=== PATIENT | male | born 1955 | race Caucasian/White ===

== ENCOUNTER 2018-03-17 18:49 | Inpatient (IN) | payer OTHER ==
[~2018-03-17] VITALS: Ht 172.7 cm; Wt 53.8 kg
[~2018-03-17 18:49] MED LIST: DIGO0.2570 PO; IPRAAER6 IN; MOME200A INH; RIV15T PO
[2018-03-17] MEDS ORDERED: methylPREDNISolone SOD SUCC 125 MG/2 ML VL ONE (18:54)
[2018-03-17] MEDS ORDERED: ALBUTEROL SULF 2.5 MG/0.5ML(0.5%) NEB SOLN ONE (18:56)
[2018-03-17] MEDS ORDERED: methylPREDNISolone SOD SUCC 125 MG/2 ML VL IV ONE (19:00)
[2018-03-17] MEDS ORDERED: MAGNESIUM SULFATE 1GM/100ML 200 ML IV ONE (19:13)
[2018-03-17 19:15] LABS: Basophils # (auto) 0.1 uL; Basophils % (auto) 0.5 % (0.0-2.0); Eosinophils # (auto) 0.3 uL; Eosinophils % (auto) 1.5 % (0.0-7.0); Hematocrit 45.2 % (41.0-53.0); Hemoglobin 15.3 g/dL (13.5-17.5); Lymphocytes # (auto) 2.5 uL; Mean Corpuscular Hemoglobin 32.2 pg (28.0-32.0); Mean Corpuscular Hgb Conc. 33.9 g/dL (32.0-36.0); Mean Corpuscular Volume 94.8 fL (80.0-100.0); Monocytes # (auto) 1.8 uL; Monocytes % (auto) 8.7 % (0.0-12.0); Neutrophils # (auto) 16.1 uL; Neutrophils % (auto) 77.3 % (37.0-80.0); Platelet Count (auto) 405 10^3/uL (140-450); Red Blood Cells 4.76 10^6/uL (4.5-5.90); Red Cell Distribution Width 13.7 % (11.8-14.3); White Blood Cell 20.8 10^3/uL (4.4-10.8)
[2018-03-17] MEDS: MAGNESIUM SULFATE 1GM/100ML 100 ML IV SCH ×2 (19:15→20:21)
[2018-03-17 19:29] LABS: Albumin 3.7 g/dL (3.4-5.0); Calcium 9.2 mg/dL (8.5-10.1)
[2018-03-17 19:30] LABS: INR 0.99 (0.9-1.15); Partial Thromboplastin Time 34.1 sec (23.78-33.04); Prothrombin Time 10.6 sec (9.27-12.13)
[2018-03-17 19:33] LABS: BUN/Creatinine Ratio 13.6; Bilirubin, Total 0.3 mg/dL (0.2-1.0); Total Protein 7.9 g/dL (6.4-8.2)
[2018-03-17 20:20] VITALS: BP 89/57
[2018-03-17 23:29] VITALS: BP 97/66
[2018-03-18] MEDS ORDERED: ALBUTEROL SULF 2.5 MG/0.5ML(0.5%) NEB SOLN NEB ONE (02:30)
[2018-03-18] MEDS ORDERED: IPRATROPIUM BROM 0.5 MG/2.5ML INH SOL NEB ONE (02:30)
[2018-03-18] MEDS ORDERED: ONDANSETRON HCL 4 MG/2 ML VIAL IV PRN (03:45)
[2018-03-18] MEDS ORDERED: ACETAMINOPHEN 325 MG TAB PO PRN (03:45)
[2018-03-18] MEDS ORDERED: ALBUTEROL SULF 2.5 MG/0.5ML(0.5%) NEB SOLN NEB PRN (03:45)
[2018-03-18] MEDS ORDERED: IPRATROPIUM BROM 0.5 MG/2.5ML INH SOL NEB PRN (03:45)
[2018-03-18 05:00] VITALS: BP 136/98
[2018-03-18] MEDS ORDERED: SODIUM CHLORIDE 0.9 % NEB SOLN 3ML NEB ONE (05:18)
[2018-03-18] MEDS: IPRATROPIUM BROM 0.5 MG/2.5ML INH SOL NEB SCH ×5 (05:38→22:07)
[2018-03-18] MEDS: ALBUTEROL SULF 2.5 MG/0.5ML(0.5%) NEB SOLN NEB SCH ×5 (05:39→22:07)
[2018-03-18] MEDS ORDERED: PNEUMOCOCCAL VACC POLYS 25 MCG/0.5 ML VIAL IM ONE (06:00)
[2018-03-18] MEDS ORDERED: INFLUENZA QUAD 2018-2019 0.5 ML SYRG IM ONE (06:00)
[2018-03-18 08:00] VITALS: BP 95/67
[2018-03-18 08:28] VITALS: BP 95/67
[2018-03-18] MEDS: LEVOFLOXACIN 500MG 100 ML IV SCH (10:28)
[2018-03-18] MEDS: DIGOXIN 0.25 MG TAB PO SCH (10:29)
[2018-03-18] MEDS: FAMOTIDINE 20 MG TAB PO SCH ×2 (11:53→22:22)
[2018-03-18 12:03] VITALS: BP 94/65
[2018-03-18 17:20] VITALS: BP 100/66
[2018-03-18] MEDS: RIVAROXABAN 15 MG TAB PO SCH (17:29)
[2018-03-18] MEDS: methylPREDNISolone SOD SUCC 125 MG/2 ML VL IV SCH (17:29)
[2018-03-18 22:00] VITALS: BP 96/66
[2018-03-18] MEDS: HYDROcodone-ACET 5/325MG TAB PO PRN (22:22)
[2018-03-19] MEDS: IPRATROPIUM BROM 0.5 MG/2.5ML INH SOL NEB SCH ×6 (02:13→22:31)
[2018-03-19] MEDS: ALBUTEROL SULF 2.5 MG/0.5ML(0.5%) NEB SOLN NEB SCH ×6 (02:13→22:31)
[2018-03-19 05:00] VITALS: BP 97/66
[2018-03-19] MEDS: methylPREDNISolone SOD SUCC 125 MG/2 ML VL IV SCH ×4 (06:10→17:12)
[2018-03-19] MEDS: HYDROcodone-ACET 5/325MG TAB PO PRN ×3 (06:11→17:13)
[2018-03-19 06:25] LABS: Basophils # (auto) 0 uL; Basophils % (auto) 0.1 % (0.0-2.0); Eosinophils # (auto) 0 uL; Hematocrit 39.1 % (41.0-53.0); Hemoglobin 13.3 g/dL (13.5-17.5); Lymphocytes # (auto) 0.4 uL; Lymphocytes % (auto) 3.7 % (10.0-50.0); Mean Corpuscular Volume 93.9 fL (80.0-100.0); Monocytes # (auto) 0.2 uL; Monocytes % (auto) 1.9 % (0.0-12.0); Neutrophils # (auto) 9.3 uL; Neutrophils % (auto) 94.3 % (37.0-80.0); Platelet Count (auto) 334 10^3/uL (140-450); Red Blood Cells 4.16 10^6/uL (4.5-5.90); Red Cell Distribution Width 13.6 % (11.8-14.3); White Blood Cell 9.9 10^3/uL (4.4-10.8)
[2018-03-19 06:39] LABS: Potassium 4.6 mmol/L (3.5-5.1)
[2018-03-19 06:47] LABS: BUN/Creatinine Ratio 27.5; Bilirubin, Total 0.3 mg/dL (0.2-1.0); Calcium 8.9 mg/dL (8.5-10.1); Total Protein 6.9 g/dL (6.4-8.2)
[2018-03-19 08:00] VITALS: BP 95/69
[2018-03-19 08:49] VITALS: BP 95/69
[2018-03-19] MEDS: LEVOFLOXACIN 500MG 100 ML IV SCH (10:10)
[2018-03-19] MEDS: FAMOTIDINE 20 MG TAB PO SCH ×2 (10:11→22:26)
[2018-03-19] MEDS: DIGOXIN 0.25 MG TAB PO SCH (10:11)
[2018-03-19 12:30] VITALS: BP 119/82
[2018-03-19] MEDS: RIVAROXABAN 15 MG TAB PO SCH (17:13)
[2018-03-19 22:00] VITALS: BP 114/76
[2018-03-19] MEDS: TEMAZEPAM 15 MG CAP PO PRN (22:26)
[2018-03-20] MEDS: ALBUTEROL SULF 2.5 MG/0.5ML(0.5%) NEB SOLN NEB SCH ×6 (02:33→22:30)
[2018-03-20] MEDS: IPRATROPIUM BROM 0.5 MG/2.5ML INH SOL NEB SCH ×6 (02:33→22:30)
[2018-03-20 05:00] VITALS: BP 100/73
[2018-03-20] MEDS: methylPREDNISolone SOD SUCC 125 MG/2 ML VL IV SCH ×5 (06:18→23:31)
[2018-03-20] MEDS: HYDROcodone-ACET 5/325MG TAB PO PRN (06:19)
[2018-03-20 08:36] VITALS: BP 122/76
[2018-03-20] MEDS: LEVOFLOXACIN 500MG 100 ML IV SCH (10:33)
[2018-03-20] MEDS: ALPRAZolam 0.5 MG TAB PO PRN (10:34)
[2018-03-20] MEDS: DIGOXIN 0.25 MG TAB PO SCH (10:34)
[2018-03-20] MEDS: FAMOTIDINE 20 MG TAB PO SCH ×2 (10:35→21:32)
[2018-03-20 11:40] VITALS: BP 131/82
[2018-03-20 16:56] VITALS: BP 112/81
[2018-03-20] MEDS: RIVAROXABAN 15 MG TAB PO SCH (18:10)
[2018-03-20 20:17] VITALS: BP 112/81
[2018-03-20 22:00] VITALS: BP 126/77
[2018-03-20] MEDS: TEMAZEPAM 15 MG CAP PO PRN (23:31)
[2018-03-21] MEDS: IPRATROPIUM BROM 0.5 MG/2.5ML INH SOL NEB SCH ×6 (02:40→22:09)
[2018-03-21] MEDS: ALBUTEROL SULF 2.5 MG/0.5ML(0.5%) NEB SOLN NEB SCH ×6 (02:40→22:09)
[2018-03-21 05:00] VITALS: BP 113/75
[2018-03-21] MEDS: methylPREDNISolone SOD SUCC 125 MG/2 ML VL IV SCH ×4 (05:35→23:28)
[2018-03-21 08:03] LABS: Basophils # (auto) 0 uL; Basophils % (auto) 0.3 % (0.0-2.0); Eosinophils # (auto) 0 uL; Hematocrit 40.8 % (41.0-53.0); Hemoglobin 13.8 g/dL (13.5-17.5); Lymphocytes # (auto) 0.5 uL; Lymphocytes % (auto) 4.7 % (10.0-50.0); Mean Corpuscular Hemoglobin 31.8 pg (28.0-32.0); Mean Corpuscular Hgb Conc. 33.7 g/dL (32.0-36.0); Mean Corpuscular Volume 94.5 fL (80.0-100.0); Monocytes # (auto) 0.4 uL; Monocytes % (auto) 3.7 % (0.0-12.0); Neutrophils # (auto) 8.9 uL; Neutrophils % (auto) 91.3 % (37.0-80.0); Platelet Count (auto) 493 10^3/uL (140-450); Red Blood Cells 4.32 10^6/uL (4.5-5.90); Red Cell Distribution Width 13.6 % (11.8-14.3); White Blood Cell 9.7 10^3/uL (4.4-10.8)
[2018-03-21 08:19] VITALS: BP 104/67
[2018-03-21 08:21] LABS: Calcium 9.4 mg/dL (8.5-10.1); Magnesium 2.4 mg/dL (1.6-2.6); Potassium 5.1 mmol/L (3.5-5.1)
[2018-03-21 08:25] LABS: BUN/Creatinine Ratio 36.1
[2018-03-21] MEDS: ALPRAZolam 0.5 MG TAB PO PRN (10:25)
[2018-03-21] MEDS: DIGOXIN 0.25 MG TAB PO SCH (10:25)
[2018-03-21] MEDS: FAMOTIDINE 20 MG TAB PO SCH ×2 (10:26→21:30)
[2018-03-21] MEDS: LEVOFLOXACIN 500MG 100 ML IV SCH (10:27)
[2018-03-21] MEDS: HYDROcodone-ACET 5/325MG TAB PO PRN (10:48)
[2018-03-21 12:00] VITALS: BP_SYST 104; BP_SYST 125; BP_DIAS 67; BP_DIAS 83
[2018-03-21 16:44] VITALS: BP 116/76
[2018-03-21] MEDS: RIVAROXABAN 15 MG TAB PO SCH (18:12)
[2018-03-21 22:00] VITALS: BP 117/77
[2018-03-21] MEDS: TEMAZEPAM 15 MG CAP PO PRN (23:28)
[2018-03-22] MEDS: IPRATROPIUM BROM 0.5 MG/2.5ML INH SOL NEB SCH ×6 (02:33→22:44)
[2018-03-22] MEDS: ALBUTEROL SULF 2.5 MG/0.5ML(0.5%) NEB SOLN NEB SCH ×6 (02:33→22:44)
[2018-03-22 05:00] VITALS: BP 108/70
[2018-03-22] MEDS: methylPREDNISolone SOD SUCC 125 MG/2 ML VL IV SCH ×4 (05:34→23:35)
[2018-03-22 06:59] LABS: Basophils # (auto) 0 uL; Eosinophils # (auto) 0 uL; Hemoglobin 14.5 g/dL (13.5-17.5); Lymphocytes # (auto) 0.4 uL; Monocytes # (auto) 0.4 uL; Neutrophils # (auto) 7.8 uL
[2018-03-22 07:00] LABS: Calcium 8.8 mg/dL (8.5-10.1); Magnesium 2.3 mg/dL (1.6-2.6); Potassium 4.7 mmol/L (3.5-5.1)
[2018-03-22 07:01] LABS: Basophils % (auto) 0.3 % (0.0-2.0); Hematocrit 42.6 % (41.0-53.0); Lymphocytes % (auto) 4.8 % (10.0-50.0); Mean Corpuscular Hemoglobin 32.2 pg (28.0-32.0); Mean Corpuscular Hgb Conc. 33.9 g/dL (32.0-36.0); Mean Corpuscular Volume 94.7 fL (80.0-100.0); Monocytes % (auto) 4.2 % (0.0-12.0); Neutrophils % (auto) 90.7 % (37.0-80.0); Platelet Count (auto) 492 10^3/uL (140-450); Red Cell Distribution Width 13.5 % (11.8-14.3); White Blood Cell 8.6 10^3/uL (4.4-10.8)
[2018-03-22 07:11] LABS: BUN/Creatinine Ratio 33.3
[2018-03-22 09:12] VITALS: BP 139/95
[2018-03-22] MEDS: DIGOXIN 0.25 MG TAB PO SCH (09:28)
[2018-03-22] MEDS: FAMOTIDINE 20 MG TAB PO SCH ×2 (09:28→21:44)
[2018-03-22] MEDS: LEVOFLOXACIN 500 MG TAB PO SCH (09:28)
[2018-03-22 11:49] VITALS: BP 112/74
[2018-03-22 16:46] VITALS: BP 131/80
[2018-03-22] MEDS: RIVAROXABAN 15 MG TAB PO SCH (18:04)
[2018-03-22 22:00] VITALS: BP 115/78
[2018-03-22] MEDS: TEMAZEPAM 15 MG CAP PO PRN (23:35)
[2018-03-23] MEDS: ALBUTEROL SULF 2.5 MG/0.5ML(0.5%) NEB SOLN NEB SCH ×4 (02:42→14:58)
[2018-03-23] MEDS: IPRATROPIUM BROM 0.5 MG/2.5ML INH SOL NEB SCH ×4 (02:42→14:58)
[2018-03-23 05:00] VITALS: BP 107/80
[2018-03-23] MEDS: methylPREDNISolone SOD SUCC 125 MG/2 ML VL IV SCH ×2 (05:36→11:59)
[2018-03-23 06:17] LABS: Basophils # (auto) 0 uL; Basophils % (auto) 0.5 % (0.0-2.0); Eosinophils # (auto) 0 uL; Hematocrit 41.7 % (41.0-53.0); Hemoglobin 14.4 g/dL (13.5-17.5); Lymphocytes # (auto) 0.5 uL; Lymphocytes % (auto) 5.8 % (10.0-50.0); Mean Corpuscular Hgb Conc. 34.4 g/dL (32.0-36.0); Mean Corpuscular Volume 93.1 fL (80.0-100.0); Monocytes # (auto) 0.5 uL; Monocytes % (auto) 5.7 % (0.0-12.0); Neutrophils # (auto) 7.2 uL; Platelet Count (auto) 474 10^3/uL (140-450); Red Blood Cells 4.48 10^6/uL (4.5-5.90); Red Cell Distribution Width 13.5 % (11.8-14.3); White Blood Cell 8.2 10^3/uL (4.4-10.8)
[2018-03-23 06:35] LABS: Calcium 8.6 mg/dL (8.5-10.1); Magnesium 2.4 mg/dL (1.6-2.6); Potassium 4.6 mmol/L (3.5-5.1)
[2018-03-23 08:52] VITALS: BP 123/68
[2018-03-23] MEDS: LEVOFLOXACIN 500 MG TAB PO SCH (09:33)
[2018-03-23] MEDS: FAMOTIDINE 20 MG TAB PO SCH (09:33)
[2018-03-23] MEDS: DIGOXIN 0.25 MG TAB PO SCH (09:34)
[2018-03-23 13:04] VITALS: BP 115/73
[2018-03-23 16:16] VITALS: BP 116/71
[2018-03-23 16:19] VITALS: BP 116/71
== END 2018-03-23 17:02 | disposition home or self-care (01) | DRG 189 ==
LOC: EDBD 18:49 → ER 18:52 → OVERFLOW 03-18 03:44 → WEST WING 03-18 05:00
PROVIDERS: ADMIT Nurse Practitioner; ATTEND Internal Medicine
PROC: 5A09357 Assistance with Respiratory Ventilation, Less than 24 Consecutive Hours, Continuous Positive Airway Pressure (ICD-10-PCS; principal; 2018-03-17)
DX: J96.21 Acute and chronic respiratory failure with hypoxia (principal); J18.9 Pneumonia, unspecified organism; J44.1 Chronic obstructive pulmonary disease with (acute) exacerbation; E87.2 Acidosis; J44.0 Chronic obstructive pulmonary disease with (acute) lower respiratory infection; E87.1 Hypo-osmolality and hyponatremia; E44.1 Mild protein-calorie malnutrition; Z68.1 Body mass index [BMI] 19.9 or less, adult; E78.5 Hyperlipidemia, unspecified; I48.91 Unspecified atrial fibrillation; J98.2 Interstitial emphysema; J20.9 Acute bronchitis, unspecified; R91.1 Solitary pulmonary nodule; D50.8 Other iron deficiency anemias; F41.9 Anxiety disorder, unspecified; I10 Essential (primary) hypertension; Z82.49 Family history of ischemic heart disease and other diseases of the circulatory system; Z87.891 Personal history of nicotine dependence; Z99.81 Dependence on supplemental oxygen; Z28.21 Immunization not carried out because of patient refusal; Z88.0 Allergy status to penicillin
CPT/HCPCS: 36415; 36600; 71045; 71250; 80048; 80053; 82805; 82962; 83735; 83880; 85025; 85610; 85730; 87040; 93005; 94640; 94660; 96361; 96365; 96375; 97116; 97530; G0378; J1956

== ENCOUNTER 2018-08-18 16:17 | Inpatient (IN) | payer MEDICARE, OTHER ==
[~2018-08-18] VITALS: Ht 170.2 cm; Wt 48.9 kg
[2018-08-18] MEDS ORDERED: methylPREDNISolone SOD SUCC 125 MG/2 ML VL ONE (18:48)
[2018-08-18] MEDS ORDERED: IPRATROPIUM BROM 0.5 MG/2.5ML INH SOL NEB ONE ×3 (19:00→23:30)
[2018-08-18] MEDS ORDERED: ALBUTEROL SULF 2.5 MG/0.5ML(0.5%) NEB SOLN NEB ONE ×3 (19:00→23:30)
[2018-08-18] MEDS ORDERED: methylPREDNISolone SOD SUCC 125 MG/2 ML VL IV ONE (19:00)
[2018-08-18 19:12] LABS: Alanine Aminotransferase 32 U/L (16-61); Albumin 3.8 g/dL (3.4-5.0); Anion Gap 5 (5-15); Aspartate Aminotransferase 29 U/L (15-37); Blood Urea Nitrogen 11 mg/dL (7-18); Calcium 9.2 mg/dL (8.5-10.1); Carbon Dioxide 31 mmol/L (21-32); Chloride 100 mmol/L (98-107); Glucose 84 mg/dL (74-106); Potassium 4.5 mmol/L (3.5-5.1); Sodium 136 mmol/L (136-145)
[2018-08-18 19:15] LABS: Basophils # (auto) 0.1 uL; Basophils % (auto) 0.8 % (0.0-2.0); Eosinophils # (auto) 0 uL; Eosinophils % (auto) 0.7 % (0.0-7.0); Hematocrit 45.7 % (41.0-53.0); Hemoglobin 15.6 g/dL (13.5-17.5); Lymphocytes # (auto) 0.8 uL; Lymphocytes % (auto) 12.1 % (10.0-50.0); Mean Corpuscular Hemoglobin 30.6 pg (28.0-32.0); Monocytes # (auto) 0.7 uL; Monocytes % (auto) 11.3 % (0.0-12.0); Neutrophils # (auto) 4.9 uL; Neutrophils % (auto) 75.1 % (37.0-80.0); Platelet Count (auto) 281 10^3/uL (140-450); Red Blood Cells 5.08 10^6/uL (4.5-5.90); White Blood Cell 6.5 10^3/uL (4.4-10.8)
[2018-08-18 19:17] LABS: Alkaline Phosphatase 94 U/L (45-117); BUN/Creatinine Ratio 13.1; Bilirubin, Total 0.3 mg/dL (0.2-1.0); GFR African American 118 mL/min; GFR Non-African American 97 mL/min; Total Protein 8.1 g/dL (6.4-8.2)
[2018-08-18 19:20] LABS: INR 0.91 (0.9-1.15); Prothrombin Time 9.8 sec (9.27-12.13)
[2018-08-18 21:00] VITALS: BP 94/54
[2018-08-18] MEDS ORDERED: TEMAZEPAM 15 MG CAP PO PRN (23:00)
[2018-08-18] MEDS ORDERED: HYDROcodone-ACET 5/325MG TAB PO PRN (23:00)
[2018-08-18] MEDS ORDERED: ACETAMINOPHEN 325 MG TAB PO PRN (23:00)
[2018-08-18] MEDS ORDERED: LEVOFLOXACIN 500MG 100 ML IV ONE (23:00)
[2018-08-18] MEDS ORDERED: ONDANSETRON HCL 4 MG/2 ML VIAL IV PRN (23:00)
[2018-08-18] MEDS ORDERED: IPRATROPIUM BROM 0.5 MG/2.5ML INH SOL NEB PRN (23:00)
[2018-08-18] MEDS ORDERED: ALBUTEROL SULF 2.5 MG/0.5ML(0.5%) NEB SOLN NEB PRN (23:00)
[2018-08-19] VITALS (21 sets, daily range): BP systolic 96–134; BP diastolic 64–94
--- NOTE | 2018-08-19 00:02 | NUR ---
Respiratory note: AT BEDSIDE IN ER9 PT WAS ABOUT TO BE TRANSFERRED TO FLOOR. CALLED STAT DUE TO RESP DISTRESS. PLACED ON BIPAP IMMEDIATELY. RN EVERTON AT BEDSIDE AND AWARE OF PLACEMENT. SIZE (M) MASK PLACED ON WITH LIQUCELL PLACED ON BRIDGE OF NOSE. NO BREAKDOWN NOTED PRIOR TO PLACEMENT. BS ARE DIMINISHED T/O VERY FINE EXPIRATORY WHEEZES IN BILATERAL BASES. WILL CONTINUE TO MONITOR Q2H. WILL OBTAIN ABG SHORTLY.
--- NOTE | 2018-08-19 06:04 | NUR ---
pt assessed for prn hhn tx. pt on bipap and states he feels sob. pt aware of breathing tx available to him if needed. pt states it makes his breathing worse. will continue to monitor.
[2018-08-19] MEDS ORDERED: LORazepam 2MG/ML-1ML VIAL ONE ×2 (06:23→09:39)
[2018-08-19] MEDS ORDERED: LORazepam 2MG/ML-1ML VIAL IV ONE ×2 (06:30→09:45)
[2018-08-19 07:40] LABS: Basophils # (auto) 0 uL; Basophils % (auto) 0.2 % (0.0-2.0); Eosinophils # (auto) 0 uL; Hematocrit 42.4 % (41.0-53.0); Hemoglobin 14.2 g/dL (13.5-17.5); Lymphocytes # (auto) 0.4 uL; Lymphocytes % (auto) 6.3 % (10.0-50.0); Mean Corpuscular Hemoglobin 30.4 pg (28.0-32.0); Mean Corpuscular Hgb Conc. 33.5 g/dL (32.0-36.0); Mean Corpuscular Volume 90.7 fL (80.0-100.0); Monocytes # (auto) 0.6 uL; Monocytes % (auto) 10.6 % (0.0-12.0); Neutrophils # (auto) 4.6 uL; Neutrophils % (auto) 82.9 % (37.0-80.0); Nucleated Red Blood Cells % 0.1 %; Platelet Count (auto) 245 10^3/uL (140-450); Red Blood Cells 4.67 10^6/uL (4.5-5.90); Red Cell Distribution Width 15.4 % (11.8-14.3); White Blood Cell 5.6 10^3/uL (4.4-10.8)
[2018-08-19 07:51] LABS: BUN/Creatinine Ratio 18.8; Calcium 8.8 mg/dL (8.5-10.1); Potassium 4.7 mmol/L (3.5-5.1)
--- NOTE | 2018-08-19 09:00 | NUR ---
PT SWITCHED TO HIGH FLOW NASAL CANNULA. PT IS ON 50LPM, 30% FIO2, SPO2 97%. PT TOLERATING WELL. ADEQUATE WATER TEMP IS NOTED. WATER JAYCEE IS FULL.
[2018-08-19] MEDS: LEVOFLOXACIN 500MG 100 ML IV SCH (09:44)
[2018-08-19] MEDS: FAMOTIDINE 20 MG TAB PO SCH ×2 (09:44→22:28)
[2018-08-19] MEDS: DIGOXIN 0.25 MG TAB PO SCH (09:44)
[2018-08-19] MEDS ORDERED: methylPREDNISolone SOD SUCC 125 MG/2 ML VL IV SCH (10:00)
[2018-08-19] MEDS ORDERED: ETOMIDATE (2MG/ML) 20ML VIAL IV ONE ×2 (11:13→11:45)
[2018-08-19] MEDS ORDERED: SUCCINYLCHOLINE CHLORIDE 20 MG/ML 10ML VIAL IV ONE ×2 (11:13→11:45)
--- NOTE | 2018-08-19 11:20 | NUR ---
Respiratory note: PT INTUBATED AT [address] ARCHIBALD. PT ORALLY INTUBATED 8.0 ETT SECURED AT 23 CM AT THE LIP WITH VELIA. PT ON MECHANICAL VENTILATOR ON ORDERED SETTINGS OF AC RR 16, VT 550, PEEP5, 50% FIO2. SPO2 97%. POSITIVE COLOR CHANGE ON CO2 DETECTOR. BILAT CHEST RISE AND FALL NOTED. EQUAL BILAT BREATH SOUNDS NOTED.
[2018-08-19] MEDS ORDERED: MIDAZOLAM DRIP 50 mg/50mL 50 ML IV ONE (11:23)
[2018-08-19] MEDS: MIDAZOLAM DRIP 50 mg/50mL 50 ML IV SCH (11:30)
[2018-08-19] MEDS ORDERED: fentaNYL Drip 2500mCg/250mlNS 250 ML IV ONE (11:38)
[2018-08-19] MEDS: fentaNYL Drip 2500mCg/250mlNS 250 ML IV SCH (11:40)
[2018-08-19] MEDS: NOREPINEPHRINE 8 MG/250ML KIT 250 ML IV SCH ×2 (12:00→22:20)
[2018-08-19] MEDS: PROPOFOL 100 ML IV SCH (12:00)
[2018-08-19] MEDS ORDERED: NOREPINEPHRINE 8 MG/250ML KIT 250 ML IV ONE (12:03)
[2018-08-19] MEDS ORDERED: PROPOFOL 100 ML IV ONE (12:03)
[2018-08-19] MEDS ORDERED: LEVALBUTEROL HCL 1.25 MG/3 ML NEB NEB SCH (15:27)
[2018-08-19 15:59] LABS: Urine Bacteria NONE SEEN /hpf (None Seen); Urine Blood Negative /uL (Negative); Urine Hyaline Cast FEW /lpf (0 - 2); Urine Mucus FEW (None Seen); Urine Specific Gravity 1.019 (1.001-1.035); Urine WBC 1 /hpf (0 - 3)
[2018-08-19] MEDS: RIVAROXABAN 20 MG TAB PO SCH (18:12)
--- NOTE | 2018-08-19 20:57 | NUR ---
ADMIT TO ICU Pt admitted to ICU via gurney on portable tank operator, intubated and being bagged by Respiratory Therapist. Sedation and Levophed infusing. See IV spreadsheet. Pt transferred to bed, connected to mechanical ventilator by Respiratory Therapist without incident. BVM at bedside. Pt connected to bedside ICU monitoring and weighed by bed scale. See completed admission physical assessment intervention. Bed locked, in lowest position with top two side rails up, and call light within reach. All alarms on and audible. Will continue to monitor pt.
--- NOTE | 2018-08-19 21:06 | NUR ---
REPORT Bedside report received from HENRI Tejeda. Assumed care of pt.
--- NOTE | 2018-08-19 21:34 | NUR ---
AT BEDSIDE Pt's , Rosa M at bedside. Updated on pt condition and answered all questions. Rosa M verbalized understanding. Admission questions answered by Rosa M.
[2018-08-19] MEDS ORDERED: LEVALBUTEROL HCL 1.25 MG/3 ML NEB ONE (21:59)
[2018-08-19] MEDS: methylPREDNISolone SOD SUCC 40 MG/ML VL IV SCH (22:27)
[2018-08-20] VITALS (103 sets, daily range): BP systolic 77–148; BP diastolic 48–86
[2018-08-20] MEDS: PROPOFOL 100 ML IV SCH ×4 (01:29→21:00)
[2018-08-20] MEDS: methylPREDNISolone SOD SUCC 40 MG/ML VL IV SCH ×4 (03:53→21:44)
[2018-08-20] MEDS: NOREPINEPHRINE 8 MG/250ML KIT 250 ML IV SCH ×2 (03:53→13:41)
[2018-08-20 03:59] LABS: Basophils # (auto) 0 uL; Basophils % (auto) 0.2 % (0.0-2.0); Eosinophils # (auto) 0 uL; Hematocrit 41.9 % (41.0-53.0); Hemoglobin 14.2 g/dL (13.5-17.5); Lymphocytes # (auto) 0.7 uL; Lymphocytes % (auto) 7.7 % (10.0-50.0); Mean Corpuscular Hemoglobin 30.2 pg (28.0-32.0); Mean Corpuscular Hgb Conc. 33.8 g/dL (32.0-36.0); Mean Corpuscular Volume 89.4 fL (80.0-100.0); Monocytes # (auto) 0.7 uL; Monocytes % (auto) 7.8 % (0.0-12.0); Neutrophils # (auto) 8.1 uL; Neutrophils % (auto) 84.3 % (37.0-80.0); Nucleated Red Blood Cells % 0.1 %; Platelet Count (auto) 307 10^3/uL (140-450); Red Blood Cells 4.69 10^6/uL (4.5-5.90); Red Cell Distribution Width 15.5 % (11.8-14.3); White Blood Cell 9.6 10^3/uL (4.4-10.8)
--- NOTE | 2018-08-20 04:10 | NUR ---
RESTLESSNESS/AGITATION Pt restless, sitting up in bed, reaching to ETT, and having coughing fit. Sedation increased. Will continue to monitor pt.
--- NOTE | 2018-08-20 04:14 | NUR ---
ETT ADVANCED TO 26 AND SECURED BY VELIA.
[2018-08-20 04:50] LABS: BUN/Creatinine Ratio 30.5; Calcium 8.9 mg/dL (8.5-10.1)
--- NOTE | 2018-08-20 05:15 | NUR ---
Respiratory note: VENTILATOR ALARMING. HIGH PEAK PRESSURES ON VENT. PT BREATH STACKING. MANUALLY VENTILATED PT WITH 100% FIO2. SPO2 REMAINED ABOVE 90%. HR DROPPED 40-50. RN AT BEDSIDE. PT PLACED BACK ON VENTILATOR WITHOUT INCIDENT. Addendum: 08/20/18 at 1644 by Doreen Galeano RT ERROR ON NOTE. THIS HAPPENED AT 1515
[2018-08-20] MEDS: fentaNYL Drip 2500mCg/250mlNS 250 ML IV SCH ×2 (06:20→17:39)
[2018-08-20] MEDS: LEVALBUTEROL HCL 1.25 MG/3 ML NEB NEB SCH ×2 (06:58→11:21)
--- NOTE | 2018-08-20 07:00 | NUR ---
URINE OUTPUT GIVEN IN REPORT WAS 1450ML PER RN, BUT WAS NOT DOCUMENTED IN I&O. ADDED TO I&O INTERVENTION Addendum: 08/20/18 at 1043 by Marcela Sibley RN Amended: Links added.
--- NOTE | 2018-08-20 07:30 | NUR ---
REPORT RECEIVED FROM DIAMOND WHEEL EDGER NURSE. PATIENT RESTING IN BED AT THIS TIME, INTUBATED AND SEDATED. RESPIRATIONS EVEN AND UNLABORED. NO SIGNS OF ACUTE DISTRESS NOTED. BED IN LOW POSITION. WILL CONTINUE TO MONITOR.
--- NOTE | 2018-08-20 07:30 | NUR ---
REPORT Report given to HENRI Medrano. Endorsed medication reconciliation. Care endorsed.
--- NOTE | 2018-08-20 08:30 | NUR ---
UPDATED AND DAUGHTER AT BEDSIDE. ALL QUESTIONS AND CONCERNS ADDRESSED AT THIS TIME.
[2018-08-20] MEDS: DIGOXIN 0.25 MG TAB PO SCH (10:00)
[2018-08-20] MEDS: FAMOTIDINE 20 MG TAB PO SCH ×2 (10:23→21:44)
[2018-08-20] MEDS: LEVOFLOXACIN 500MG 100 ML IV SCH (10:23)
[2018-08-20] MEDS: MIDAZOLAM DRIP 50 mg/50mL 50 ML IV SCH (11:33)
--- NOTE | 2018-08-20 11:42 | NUR ---
PAGED DR THOMPSON FOR ABG RESULTS. AWAITING CALL BACK.
--- NOTE | 2018-08-20 12:55 | NUR ---
DR DAVID AT BEDSIDE TO ASSESS PATIENT AND DISCUSS PLAN OF CARE WITH FAMILY. NO NEW ORDERS AT THIS TIME.
--- NOTE | 2018-08-20 14:44 | NUR ---
CHANGE OF CONDITION PATIENT CONTINUES TO ROSENBERG THE VENTILATOR. RESPIRATORY THERAPIST IS BAGGING PATIENT AT THIS TIME. PATIENTS HEART RATE DECREASED TO 47, ALL SEDATIONS STOPPED AT THIS AND PAGED DR DAVID WELL DR Roney CROW TO INFORM OF CHANGE. AWAITING CALL BACK.
--- NOTE | 2018-08-20 14:52 | NUR ---
PATIENT WOKE UP AND AGITATED FIGHTING VENTILATOR. RESTARTED SEDATIONS AT PREVIOUS RATE. WILL CONTINUE TO MONITOR. PER DR THOMPSON START DOPAMINE TO KEEP HEART RATE 60 OR GREATER.
[2018-08-20] MEDS ORDERED: DOPamine 1600MCG/ML D5W 250 ML IV ONE (15:10)
[2018-08-20] MEDS: DOPamine 1600MCG/ML D5W 250 ML IV SCH (15:17)
--- NOTE | 2018-08-20 15:18 | NUR ---
DR THOMPSON AT BEDSIDE TO ASSESS PATIENT AND DISCUSS PLAN OF CARE. ALL ORDERS NOTED IN CHART.
--- NOTE | 2018-08-20 15:30 | NUR ---
RESPIRATORY AT BEDSIDE AND ADJUSTED VENTILATOR SETTINGS NOTED. PATIENT TOLERATING WELL. PATIENT IS NO LONGER BUCKING THE VENTILATOR. SATURATIONS 95% AT THIS TIME. PAGED DR THOMPSON TO INFORM OF CHANGES. AWAITING CALL BACK.
--- NOTE | 2018-08-20 15:30 | NUR ---
SWITCHED PT TO PRESSURE CONTROL AT THIS TIME. SETTINGS AC/PC RR 16, IP 29, I TIME 1.0, PEEP 5. INCREASED FIO2 TO 35%. APPROPRIATE ALARMS SET AND AUDIBLE. HENRI CORREA AT BEDSIDE AND AWARE OF CHANGES. SPO2 95%.
--- NOTE | 2018-08-20 16:00 | NUR ---
UNABLE TO TURN PATIENT AT THIS TIME. PATIENT IS TOO UNSTABLE. PATIENT HAS DECREASED HEART RATE 40-50, DECREASED BLOOD PRESSURE AND FIGHTING VENTILATOR IN RESPIRATORY DISTRESS. WILL CONTINUE TO MONITOR.
--- NOTE | 2018-08-20 16:41 | NUR ---
INCREASED FIO2 TO 40%. DUE TO DESATURATION
[2018-08-20] MEDS: RIVAROXABAN 20 MG TAB PO SCH (17:14)
--- NOTE | 2018-08-20 19:00 | NUR ---
Respiratory note: INCREASED RR TO 18 AT THIS TIME PER MD ORDER
--- NOTE | 2018-08-20 19:15 | NUR ---
Initial Assessment Patient received laying on bed on mechanical ventilation and sedated with Fentanyl and Propofol. PERRL intact at 1 and sluggish, hyperactive cough present.HOB elevated greater than 30 degrees. Oral care and suction rendered. OGT present and clamped. RN verified proper placement via auscultation with air bolus. RIJ TLC intact and patent x3 ports with dressing CDI. PIV x2 saline locked. ABD soft and flat. F/C intact and draining to gravity, SCD's intact to BLE. Optifoam gentle adhesive dressing intact to sacral area. Neurovascular status intact with palpable distal pulses, skin warm to touch, and capillary refill brisk. All bony prominences and heels offloaded with pillows. Bed in lowest position, side rails up, bed brakes set, bed alarm set, all alarms audible, in direct view of nurses station. No S/S of distress or pain noted. Continue close monitoring.
--- NOTE | 2018-08-20 19:17 | NUR ---
DR Roney CROW AT BEDSIDE TO ASSESS PATIENT AND DISCUSS PLAN OF CARE WITH FAMILY. ALL ORDERS NOTED IN CHART. Addendum: 08/20/18 at 1943 by Marcela Sibley RN MD DISCUSSED IN LENGTH THE PET SCAN RESULTS WITH FAMILY AND THE HIGH POSSIBILITY OF STAGE 4 CANCER, BUT NEEDED TO BE CONFIRMED WITH BIOPSY AND ONCOLOGY. FAMILY VERBALIZED UNDERSTANDING. MD DISCUSSED PATIENTS CRITICAL CONDITION, FAMILY UNDERSTANDS.
--- NOTE | 2018-08-20 21:00 | NUR ---
Family at bedside RN updated on status of patient and POC. They verbalized understanding. No concerns or complaints voiced from them.
--- NOTE | 2018-08-20 21:30 | NUR ---
Visitation Patient's states patient has a Son who is currently incarcerated in [place]. She is requesting a doctors note in an attempt to get him visitation to say goodbye to father. RN taped note to front of chart to inform of patient's request, put in social service consult, and will also inform day shift RN to F/U with MD in the am to get the note written. RN informed patient's of plan and she verbalized understanding.
--- NOTE | 2018-08-20 22:00 | NUR ---
Propofol tubing changed per 12 hour protocol.
--- NOTE | 2018-08-20 22:30 | NUR ---
Sedation vacation held Sedation vacation held for patient safety due to patient has hyperactive cough reflex when coming off sedation,is dyssynchronous with ventilator, and requires manual bagging. Patient also wakes up easily when being turned or repositioned, and had episode where he sat straight up. Will keep patient sedated throughout the night for safety and comfort.
[2018-08-21] VITALS (104 sets, daily range): BP systolic 77–156; BP diastolic 54–87
--- NOTE | 2018-08-21 01:00 | NUR ---
Bed bath/linen change RN asked patient's to step out of room for bed bath. Patient's got upset and raised her voice that patient will be exposed without at bedside. RN reassured her that it is only for the patient's privacy and dignity. She verbalized understanding but remained upset. RN administered bath per patient's 's wish with her at bedside while maintaining as much privacy as possible. RN informed charge entry clerk that patient's was upset. With at bedside, patient was given complete bed bath, oral care performed again, and all linens and gown changed. Patient tolerated well with no s/s of distress or pain.
--- NOTE | 2018-08-21 01:20 | NUR ---
ROUNDED: COVERING ASSIGNED RN FOR LUNCH BREAK. FAMILY AT BEDSIDE. VSS. EVEN AND UNLABORED BREATHING. WILL ENDORSE CARE BACK TO ASSIGNED RN
--- NOTE | 2018-08-21 02:00 | NUR ---
ROM performed on all extremities. No stiffness noted. Patient tolerated well.
[2018-08-21] MEDS: PROPOFOL 100 ML IV SCH ×3 (02:13→15:38)
--- NOTE | 2018-08-21 02:30 | NUR ---
Requesting to speak with RT Patient's states patient is "breathing harder". Patient's educated that patient is riding the vent with no changes to peak inspiratory pressures or rate. He is maxed out on two sedations and appears comfortable with no facial grimacing, restlessness, or tensing to extremities. Informed RT Lauren, to talk to patient's as well for reassurance.
[2018-08-21] MEDS: methylPREDNISolone SOD SUCC 40 MG/ML VL IV SCH ×4 (03:26→23:00)
--- NOTE | 2018-08-21 04:00 | NUR ---
Ongoing Assessment No changes or incidents to report. patient continues to rest with no s/s of distress or pain noted. oral care and suction being provided frequently/PRN. Patient being turned Q2H, all bony prominences and heels offloaded with pillows, skin is clean and dry. Good urine output noted, embroidery operator ashvin labs and they are pending, HOB elevated greater than 30 degrees. Patient's at bedside in reclining chair, central line dressing remains CDI with no s/s of infiltration or phlebitis noted. Neurovascular status remains intact and unchanged-all distal pulses palpable. Bed in lowest position, side rails up, bed brakes set, bed alarm set, all alarms audible, in direct view of nurses station. Continue close monitoring.
[2018-08-21 04:24] LABS: Basophils # (auto) 0.1 uL; Basophils % (auto) 0.8 % (0.0-2.0); Eosinophils # (auto) 0 uL; Hematocrit 41.7 % (41.0-53.0); Lymphocytes # (auto) 0.8 uL; Lymphocytes % (auto) 11.9 % (10.0-50.0); Mean Corpuscular Hemoglobin 30.1 pg (28.0-32.0); Mean Corpuscular Hgb Conc. 33.5 g/dL (32.0-36.0); Mean Corpuscular Volume 89.7 fL (80.0-100.0); Monocytes # (auto) 0.6 uL; Monocytes % (auto) 8.4 % (0.0-12.0); Neutrophils # (auto) 5.4 uL; Neutrophils % (auto) 78.9 % (37.0-80.0); Nucleated Red Blood Cells % 0.1 %; Platelet Count (auto) 232 10^3/uL (140-450); Red Blood Cells 4.65 10^6/uL (4.5-5.90); Red Cell Distribution Width 15.3 % (11.8-14.3); White Blood Cell 6.8 10^3/uL (4.4-10.8)
[2018-08-21 04:40] LABS: BUN/Creatinine Ratio 36.6; Calcium 8.3 mg/dL (8.5-10.1); Potassium 4.8 mmol/L (3.5-5.1)
[2018-08-21] MEDS: fentaNYL Drip 2500mCg/250mlNS 250 ML IV SCH ×2 (05:24→17:04)
--- NOTE | 2018-08-21 07:00 | NUR ---
Report given No changes or incidents to report. No s/s of distress or pain noted. All vitals stable. Care endorsed to day shift RN to assume care.
--- NOTE | 2018-08-21 07:30 | NUR ---
ASSESS- PT. LYING IN BED ON VENT SIZE# 8.0 ET, 26 AT THE LIP, PC-18, PS-29, PEEP-5, FIO2-30%. LUNGS CLEAR YEIMI. INSPIRATORY AND EXPIRATORY, DIMINISHED BASES YEIMI. PT. HAS HYPERACTIVE GAG/COUGH REFLEX. ON PROPOFOL GTT. AT 50 MCG. AND FENTANYL GTT. AT 200 MCG. TLC RT. IJ INTACT. YEIMI. HAND MITTENS IN PLACE TO PREVENT PULLING OF TUBES. OGT CLAMPED. ABD. SOFT, FLAT. BOWEL SOUNDS ALL FOUR QUADRANTS. F/C TO GRAVITY WITH CLEAR LT. MESSI URINE. RADIAL PULSES STRONG, PALPABLE YEIMI. PEDAL PULSES STRONG, PALPABLE YEIMI. NO EDEMA. SCD'S YEIMI. LE. SKIN INTACT. OPTIFOAM DSG. TO SACRUM PREVENTATIVE. LEVOPHED GTT. AT 2MCG. AND DOPAMINE GTT. AT 5MCG. SBP 90'S. HR 60'S-70'S SR WITHOUT ECTOPY.
--- NOTE | 2018-08-21 09:00 | NUR ---
Family updated on pt status Family of SIMRAN FRENCH updated on patient's status and condition. All questions and concerns addressed. AND verbalized understanding. VISITING AT THE BS.
[2018-08-21] MEDS: LEVOFLOXACIN 500MG 100 ML IV SCH (09:41)
[2018-08-21] MEDS: DIGOXIN 0.25 MG TAB PO SCH (09:41)
[2018-08-21] MEDS: FAMOTIDINE 20 MG TAB PO SCH ×2 (09:41→23:00)
--- NOTE | 2018-08-21 09:50 | NUR ---
CHECKED PLACEMENT WITH OGT, DID NOT HEAR AIR ENTER STOMACH, HEARD GURGLING FROM MOUTH. ADVANCED OGT AND CHECKED PLACEMENT, ABLE TO AUSCULTATE AIR. PT. TOLERATED WELL.
--- NOTE | 2018-08-21 10:00 | NUR ---
SBP DECREASED TO THE 80'S AFTER 2 CYCLES. TITRATED LEVOPHED GTT. UP TO 3 MCG. FROM 2 MCG. MONITORING BP.
--- NOTE | 2018-08-21 10:30 | NUR ---
SBP INCREASED TO THE 90'S. CONTINUING TO MONITOR BP.
[2018-08-21] MEDS: MIDAZOLAM DRIP 50 mg/50mL 50 ML IV SCH (10:37)
--- NOTE | 2018-08-21 11:15 | NUR ---
WOUND CARE NOTE: PATIENT ADDED TO SKIN INTEGRITY MONITORING D/T INTUBATION, LOW ALAN SCORE OF 12. PATIENT WAS ADMITTED TO [facility] WITH DIAGNOSIS OF COPD, ACUTE/CHRONIC RESPIRATORY FAILURE. PATIENT IS INTUBATED, SEDATED. HE IS WOUND FREE AT THIS TIME. PATIENT VERY THIN, WEIGHING 55.8 KG. RECOMMEND: FREQUENT TURN SCHEDULE Q 2 HOURS, PRN CONDITION PERMITS, WITH PRESSURE REDISTRIBUTION USING PILLOWS/WEDGES, BID/PRN APPLICATION WITH MOISTURE BARRIER CREAM AND USE OF OPTIFOAM GENTLE SACRAL DRESSING PREVENTATIVE, DIETARY CONSULT FOR LOW ALAN SCORES, CONTINUED MONITORING BY WOUND CARE TEAM. SKIN/WOUND CARE PLAN IMPLEMENTED AT THIS TIME.
--- NOTE | 2018-08-21 13:00 | NUR ---
PT. RESTING ON VENT, SEDATED. NO SIGNS OF DISTRESS OR DISCOMFORT.
[2018-08-21] MEDS: DOPamine 1600MCG/ML D5W 250 ML IV SCH (13:57)
--- NOTE | 2018-08-21 16:00 | NUR ---
FAMILY VISITING AT THE .
[2018-08-21] MEDS: RIVAROXABAN 20 MG TAB PO SCH (17:23)
--- NOTE | 2018-08-21 18:15 | NUR ---
DR. Guru CROW Provider/Hospitalist at bedside. GAVE UPDATE ON PT. SPOKE WITH AND FAMILY AT THE BS. NEW ORDERS RECEIVED.
--- NOTE | 2018-08-21 18:30 | NUR ---
DR. RIBERA Provider/Hospitalist at bedside.
--- NOTE | 2018-08-21 19:30 | NUR ---
REPORT RECEIVED AND ASSUMED CARE; SEE INTERVENTIONS FOR ASSESSMENT; VS STABLE WITH PT. ON LEVOPHED GTT AND DOPAMINE GTT; SEE IV SPREADSHEET FOR GTTS; WALTER CONT. TO MONITOR; PT. X2 DAUGHTERS AT BEDSIDE AND UPDATED ON PLAN OF CARE.
[2018-08-21] MEDS: IPRATROPIUM BROM 0.5 MG/2.5ML INH SOL NEB SCH (22:26)
[2018-08-21] MEDS: ALBUTEROL SULF 2.5 MG/0.5ML(0.5%) NEB SOLN NEB SCH (22:26)
[2018-08-22] VITALS (103 sets, daily range): BP systolic 0–155; BP diastolic 0–90
--- NOTE | 2018-08-22 02:00 | NUR ---
LEVOPHED GTT OFF; WILL CONT. TO MONITOR.
[2018-08-22] MEDS: IPRATROPIUM BROM 0.5 MG/2.5ML INH SOL NEB SCH ×6 (02:33→22:17)
[2018-08-22] MEDS: ALBUTEROL SULF 2.5 MG/0.5ML(0.5%) NEB SOLN NEB SCH ×6 (02:33→22:17)
[2018-08-22] MEDS: methylPREDNISolone SOD SUCC 40 MG/ML VL IV SCH ×4 (04:00→22:00)
[2018-08-22 04:23] LABS: Basophils # (auto) 0.1 uL; Basophils % (auto) 1.4 % (0.0-2.0); Eosinophils # (auto) 0 uL; Eosinophils % (auto) 0.1 % (0.0-7.0); Hematocrit 41.3 % (41.0-53.0); Hemoglobin 13.7 g/dL (13.5-17.5); Lymphocytes # (auto) 0.5 uL; Lymphocytes % (auto) 7.9 % (10.0-50.0); Mean Corpuscular Hemoglobin 29.8 pg (28.0-32.0); Mean Corpuscular Hgb Conc. 33.1 g/dL (32.0-36.0); Mean Corpuscular Volume 89.8 fL (80.0-100.0); Monocytes # (auto) 0.4 uL; Monocytes % (auto) 5.2 % (0.0-12.0); Neutrophils # (auto) 5.8 uL; Neutrophils % (auto) 85.4 % (37.0-80.0); Platelet Count (auto) 224 10^3/uL (140-450); Red Cell Distribution Width 15.7 % (11.8-14.3); White Blood Cell 6.8 10^3/uL (4.4-10.8)
[2018-08-22 04:35] LABS: BUN/Creatinine Ratio 35.5; Calcium 8.3 mg/dL (8.5-10.1); Potassium 4.5 mmol/L (3.5-5.1)
--- NOTE | 2018-08-22 07:30 | NUR ---
ASSESS- PT. LYING IN BED ON VENT SIZE 8.0 ET, 26 AT THE LIP, PC-18, PS-29, PEEP-5, FIO2-30%. PT. HAS HYPERACTIVE GAG/COUGH REFLEX. LUNGS WITH WHEEZES YEIMI. INSPIRATORY AND EXPIRATORY, DIMINISHED BASES YEIMI. ON PROPOFOL GTT. AT 50 MCG., FENTANYL GTT. AT 200 MCG. PT. RESPONDS TO PAINFUL/TACTILE STIMULI. YEIMI. HAND MITTENS IN PLACE TO PREVENT PULLING OF TUBES. OGT CLAMPED. PT. IS NPO. ABD. SOFT, FLAT. BOWEL SOUNDS ALL FOUR QUADRANTS. F/C TO GRAVITY WITH CLEAR LT. MESSI URINE. RADIAL PULSES STRONG, PALPABLE YEIMI. PEDAL PULSES STRONG, PALPABLE YEIMI. SCD'S YEIMI. LE. SKIN INTACT. DOPAMINE GTT. AT 6 MCG. SBP 90'S, HR 60'S SR WITHOUT ECTOPY. TLC RT. IJ INTACT.
--- NOTE | 2018-08-22 08:15 | NUR ---
Respiratory note: DECREASED INSPIRATORY PRESSURE TO [address] Matthew RIBERA'S ORDERS. RN AT BEDSIDE, MADE AWARE OF CHANGES. BREATH SOUNDS DIMINISHED, SUCTION NOT INDICATED. ALARMS VERIFIED AND AUDIBLE. PT REMAINS SEDATED AND ASLEEP. WILL CONTINUE TO MONITOR.
--- NOTE | 2018-08-22 09:15 | NUR ---
VISITING AT THE BS.
[2018-08-22] MEDS: LEVOFLOXACIN 500MG 100 ML IV SCH (09:37)
[2018-08-22] MEDS: FAMOTIDINE 20 MG TAB PO SCH ×2 (09:37→22:00)
[2018-08-22] MEDS: DIGOXIN 0.25 MG TAB PO SCH (09:38)
[2018-08-22] MEDS: NOREPINEPHRINE 8 MG/250ML KIT 250 ML IV SCH (10:17)
--- NOTE | 2018-08-22 11:00 | NUR ---
SBP DECREASED TO THE 80'S. TITRATED DOPAMINE GTT. UP TO 7 MCG. HR 70'S, SR WITHOUT ECTOPY. MONITORING BP.
--- NOTE | 2018-08-22 11:28 | NUR ---
Respiratory note: INCREASED FIO2 TO 50% DUE TO PT DESATTING, PT NOW STABLE WITH POX AT 94%. ALSO NOTED LOWER TIDAL VOLUMES 280-310 AT INSP PRESSURE OF 26. NOTIFIED HENRI GRIJALVA. CALLED DR. Matthew RIBERA'S OFFICE TO REQUEST VENT ORDER CHANGES, AWAITING CALL BACK.
--- NOTE | 2018-08-22 12:00 | NUR ---
SBP WILL BE IN THE 90'S AND DECREASING TO THE 80'S. TITRATED DOPAMINE GTT. UP TO 8 MCG. MONITORING BP.
--- NOTE | 2018-08-22 12:07 | NUR ---
Respiratory note: INCREASED INSP PRESSURE TO 28 AND PEEP +[address] Matthew RIBERA'S ORDERS. INCREASED FIO2 TO ACHIEVE STABLE POX AT 96%. BREATH SOUNDS CLEAR DIMINISHED THROUGHOUT, SUCTION NOT INDICATED. RN AND FAMILY AT BEDSIDE. NOTIFIED RN OF CHANGES. ALARMS VERIFIED AND AUDIBLE. WILL CONTINUE TO MONITOR.
--- NOTE | 2018-08-22 13:00 | NUR ---
SBP 90'S-100'S. CONTINUING TO MONITOR BP.
--- NOTE | 2018-08-22 14:37 | NUR ---
Nutrition consult/assessment Notes please see attached link for complete assessment Est. Needs IBW [id number] kcal (25-30 kcal/kgBW), 67-80 gms pro (1.0-1.2gms/kgBW). Will continue to monitor pertinent labs and reassess nutrient need prn Addendum: 08/22/18 at [address] Amended: Links added.
[2018-08-22] MEDS: DOPamine 1600MCG/ML D5W 250 ML IV SCH (14:43)
[2018-08-22] MEDS: fentaNYL Drip 2500mCg/250mlNS 250 ML IV SCH (14:43)
--- NOTE | 2018-08-22 15:00 | NUR ---
FAMILY VISITING AT THE .
[2018-08-22] MEDS: PROPOFOL 100 ML IV SCH (15:34)
--- NOTE | 2018-08-22 16:10 | NUR ---
DR. RIBERA Provider/Hospitalist at bedside.
[2018-08-22] MEDS: RIVAROXABAN 20 MG TAB PO SCH (17:21)
[2018-08-23] VITALS (81 sets, daily range): BP systolic 65–130; BP diastolic 41–92
--- NOTE | 2018-08-23 01:15 | NUR ---
PT. HAVING DECREASED VOLUMES AND DECREASING SATS; S/W RT AND SHE WILL PERFORM ABG..
--- NOTE | 2018-08-23 01:20 | NUR ---
G RESULTS; WILL PAGE DR. RIBERA.
--- NOTE | 2018-08-23 01:30 | NUR ---
S/W DR. RIBERA AND RT WILL MAKE RATE CHANGES; AND ABG IN AM.
[2018-08-23] MEDS: ALBUTEROL SULF 2.5 MG/0.5ML(0.5%) NEB SOLN NEB SCH ×6 (02:38→22:59)
[2018-08-23] MEDS: IPRATROPIUM BROM 0.5 MG/2.5ML INH SOL NEB SCH ×6 (02:38→22:59)
[2018-08-23] MEDS: methylPREDNISolone SOD SUCC 40 MG/ML VL IV SCH ×4 (04:00→21:24)
[2018-08-23 04:30] LABS: Basophils # (auto) 0 uL; Basophils % (auto) 0.5 % (0.0-2.0); Eosinophils # (auto) 0 uL; Hematocrit 40.7 % (41.0-53.0); Hemoglobin 13.6 g/dL (13.5-17.5); Lymphocytes # (auto) 0.5 uL; Lymphocytes % (auto) 7.8 % (10.0-50.0); Mean Corpuscular Hemoglobin 30.2 pg (28.0-32.0); Mean Corpuscular Hgb Conc. 33.3 g/dL (32.0-36.0); Mean Corpuscular Volume 90.9 fL (80.0-100.0); Monocytes # (auto) 0.3 uL; Monocytes % (auto) 5.4 % (0.0-12.0); Neutrophils # (auto) 5.1 uL; Neutrophils % (auto) 86.3 % (37.0-80.0); Platelet Count (auto) 231 10^3/uL (140-450); Red Blood Cells 4.48 10^6/uL (4.5-5.90); Red Cell Distribution Width 15.5 % (11.8-14.3); White Blood Cell 5.9 10^3/uL (4.4-10.8)
[2018-08-23 04:48] LABS: BUN/Creatinine Ratio 41.7; Calcium 8.5 mg/dL (8.5-10.1); Potassium 5.1 mmol/L (3.5-5.1)
--- NOTE | 2018-08-23 07:02 | NUR ---
Respiratory note: RECEIVED PATIENT ON V5 ESPRIT VENT ORALLY INTUBATED WITH AN 8.0 SECURED VIA VELIA AT THE 26CM MARKING AT THE LIP, AND MECHANICALLY VENTILATED WITH THE CHARTED SETTINGS. SPO2 98%, LUNG SOUNDS DIM T/O, NO SECRETIONS WHEN SUCTIONED. SKIN IS WARM/DRY TO THE TOUCH AND IS INTACT NEAR VELIA SITE. THERE IS AN OGT IN PLACE AND SECURED TO THE ETT, PATIENT HAS A TRIPLE LUMEN CENTRAL LINE PLACED IN THE RIGHT IJ, NO EDEMA NOTED. NO NEW CXR TO ASSESS. PATIENT IS RESPONSIVE TO TACTILE STIMULI BUT DOES NOT RESPOND TO VERBAL STIMULI AND IS SEDATED ON FENTNAYL AND PROPOFOL DRIPS. HE IS RESTING COMFORTABLY AND TOLERATING VENT WELL, NO CHANGES MADE. VENT PLUGGED INTO RED OUTLET AND ALL ALARMS ARE SET AND AUDIBLE. WILL CONTINUE TO ASSESS PATIENT WELL VENTILATOR FUNCTION. [employer] RUN INLINE.
--- NOTE | 2018-08-23 07:30 | NUR ---
OPENING SHIFT NOTE REPORT RECEIVED FROM TAILOR GARMENT FITTER RN, MORNING ASSESSMENT PERFORMED AND DOCUMENTED. 63 YEAR OLD MALE LYING IN BED IN SUPINE POSITION - MECHANICALLY VENTILATED. PATIENT OPENED EYES WHEN CALLED BY NAME AND CALM, PLAN OF CARE DISCUSSED WITH PATIENT. HAYES CATHETER PATENT AND DRAINING TO GRAVITY. FALL AND SAFETY PRECAUTIONS IN PLACE.
--- NOTE | 2018-08-23 08:27 | NUR ---
FAMILY AT BEDSIDE PATIENT'S SPOUSE JONATHON UPDATED ON PATIENT'S STATUS. ALL QUESTIONS ANSWERED TO THIS NURSE BEST ABILITY, SIS VERBALIZED UNDERSTANDING.
[2018-08-23] MEDS: DIGOXIN 0.25 MG TAB PO SCH (10:00)
[2018-08-23] MEDS: LEVOFLOXACIN 500MG 100 ML IV SCH (10:02)
[2018-08-23] MEDS: FAMOTIDINE 20 MG TAB PO SCH ×2 (10:02→21:24)
--- NOTE | 2018-08-23 10:20 | NUR ---
FAMILY AT BEDSIDE PATIENT'S SPOUSE AT BEDSIDE, NOTIFIED THIS NURSE "WE HAVE DECIDED TO DISCONNECT HIM FROM THE MACHINE TODAY". MD WILL BE NOTIFIED. PATIENT STATES SHE SPOKE WITH HOSPITALIST YESTERDAY AND KNOWS THAT MD WILL PROBABLY NOT BE AT BEDSIDE UNTIL LATER TODAY.
--- NOTE | 2018-08-23 10:25 | NUR ---
Late SS consult on thursday night regarding having pt's son , who is incarcerated, connect with father to say kameron. Per family request pt will be disconnected from vent sometime today. Attempts were made over the weekend to connect with son via Skype but were unsuccessful. Will followup with spouse today regarding if any additional attempts to connect with son is being requested. Addendum: 08/23/18 at 1031 by AZIZA STANLEY SS Amended: Links added.
[2018-08-23] MEDS: PROPOFOL 100 ML IV SCH ×2 (10:43→15:58)
[2018-08-23] MEDS: NOREPINEPHRINE 8 MG/250ML KIT 250 ML IV SCH (11:18)
[2018-08-23] MEDS: fentaNYL Drip 2500mCg/250mlNS 250 ML IV SCH (15:57)
--- NOTE | 2018-08-23 16:20 | NUR ---
HOSPITALIST AT BEDSIDE DR Guru GARDINER UPDATED ON PATIENT'S STATUS, DRIPS AND PATIENT'S SPOUSE SIS'S WISHES TO "DISCONNECT FROM MACHINE TODAY". DR GARDINER DISCUSSED PLAN OF CARE WITH PATIENT IN LENGTH AND AWAITING DR THOMPSON'S RECOMMENDATIONS BEFORE TERMINALLY WEANING PATIENT. ALL FAMILY MEMBERS VERBALIZED UNDERSTANDING. MODIFIED DNR DISCUSSED WITH FAMILY MEMBERS, SIGNED BY MD AND FILED IN CHART.
--- NOTE | 2018-08-23 17:03 | NUR ---
COMFORT/PATIENT COUGH COMFORT CARE PROVIDED, PARTIAL BEDDING CHANGED. PATIENT BEGAN TO COUGH UNCONTROLLABLY. PATIENT TURNED TO MAINTAIN SKIN INTEGRITY. PATIENT'S SPOUSE AT BEDSIDE AT ALL TIMES. FALL AND SAFETY PRECAUTIONS, WILL MONITOR PATIENT.
--- NOTE | 2018-08-23 18:00 | NUR ---
PAGED PULMONOLOGY THIS NURSE NOTED PATIENT'S IRREGULAR RESPIRATIONS, NO AIR MOVEMENT, PATIENT APPEARS TO BE AGONAL BREATHING - TIDAL VOLUME CHANGES. CHARGE NURSE AWARE. AWAITING RESPONSE.
[2018-08-23] MEDS: MIDAZOLAM DRIP 50 mg/50mL 50 ML IV SCH ×2 (18:04→21:25)
--- NOTE | 2018-08-23 18:04 | NUR ---
CONTACT HOSPITALIST SPOKE WITH DR Roney GARDINER, UPDATED ON PATIENT'S RESPIRATIONS AND CURRENT SEDATION. ORDERS RECEIVED.
[2018-08-23] MEDS ORDERED: MIDAZOLAM DRIP 50 mg/50mL 50 ML IV ONE (18:07)
[2018-08-23] MEDS: RIVAROXABAN 20 MG TAB PO SCH (18:14)
--- NOTE | 2018-08-23 18:21 | NUR ---
RETURN CALL FROM PAPERBOARD BOXES ESTIMATOR DR THOMPSON UPDATED ON PATIENT'S CURRENT STATUS, DR GARDINER'S RECOMMENDATIONS EARLIER AND NEW ORDERS FOR VERSED. ORDERS FOR PORTABLE CHEST XRAY RECEIVED AND DOCTOR STATED HE WILL BE IN SOON.
--- NOTE | 2018-08-23 19:30 | NUR ---
END OF SHIFT NOTE/DR THOMPSON AT BEDSIDE ENDORSED CONTINUED CARE TO PLANT RELIABILITY ENGINEER RN. DR THOMPSON AT BEDSIDE, UPDATED ON PATIENT'S STATUS, DRIPS AND FAMILY CONCERNS.
--- NOTE | 2018-08-23 20:05 | NUR ---
DR. THOMPOSN AT BEDSIDE SPEAKING WITH AND X3 DAUGHTERS; PT. PROGNOSIS IS GRIM; WANTS TO TERMINAL WEAN IN AM AND WANTS PATIENT TO BE A FULL DNR AT THIS TIME WITH THE CONTINUANCE OF THE CARES WE ARE PROVIDING.
--- NOTE | 2018-08-23 20:24 | NUR ---
INCREASED FIO2 FOR O2 SAT AT 83%; FIO2 INCREASED TO 50%.
[2018-08-23] MEDS: DOPamine 1600MCG/ML D5W 250 ML IV SCH (21:24)
[2018-08-24] VITALS (61 sets, daily range): BP systolic 90–157; BP diastolic 55–99
[2018-08-24] MEDS: IPRATROPIUM BROM 0.5 MG/2.5ML INH SOL NEB SCH ×4 (02:21→14:33)
[2018-08-24] MEDS: ALBUTEROL SULF 2.5 MG/0.5ML(0.5%) NEB SOLN NEB SCH ×4 (02:21→14:34)
--- NOTE | 2018-08-24 07:30 | NUR ---
OPENING SHIFT NOTE/UNSTABLE PATIENT RESTING IN BED IN SUPINE POSITION, MECHANICALLY VENTILATED, SEDATED AND NON RESPONSIVE AT THIS TIME. PATIENT'S DAUGHTER AND SPOUSE AT BESIDE. PER TEA BAG MACHINE TENDER RN, "PATIENT HAS BEEN UNSTABLE ALL NIGHT AND TIDAL VOLUMES ON VENTILATOR APPEAR TO BE ADEQUATE NOW AND NOT FLUCTUATING". ON ASSESSMENT, RESPIRATIONS ARE CURRENTLY SHALLOW, EVEN AND UNLABORED, LUNGS SOUNDS ARE CLEAR AND DIMINISHED. PATIENT UNSTABLE AT THIS TIME FOR TURNING, SUCTIONING AND/OR ORAL CARE - PATIENT BEGINS TO COUGH UNCONTROLLABLY AND PER TEA BAG MACHINE TENDER REPORT, TOOK ALMOST ALL TEA BAG MACHINE TENDER TO RECOVER. PATIENT'S SPOUSE SIS AWARE AND VERBALIZED UNDERSTANDING AND IN AGREEMENT THAT PATIENT DOES NOT DO WELL WITH ANY ACTIVITY OR MOVEMENT - RESPIRATORY THERAPIST AWARE. FAMILY AWAITING HOSPITALIST FOR POSSIBLY TERMINAL WEAN TODAY.
[2018-08-24] MEDS: MIDAZOLAM DRIP 50 mg/50mL 50 ML IV SCH (09:31)
[2018-08-24] MEDS: methylPREDNISolone SOD SUCC 40 MG/ML VL IV SCH ×2 (09:32→09:35)
[2018-08-24] MEDS: FAMOTIDINE 20 MG TAB PO SCH (09:32)
[2018-08-24] MEDS: DIGOXIN 0.25 MG TAB PO SCH (09:32)
[2018-08-24] MEDS: LEVOFLOXACIN 500MG 100 ML IV SCH (09:32)
--- NOTE | 2018-08-24 10:15 | NUR ---
CALL RECEIVED FROM HOSPITALIST DR Guru GARDINER UPDATED ON PATIENT'S STATUS, DR THOMPSON'S RECOMMENDATIONS AND FAMILY WISHES TO TERMINALLY WEAN TODAY. ORDERS RECEIVED. Addendum: 08/24/18 at 1022 by Sri Miguel RN PATIENT'S SPOUSE SIS NOTIFIED OF DR GARDINER'S ORDERS. PATIENT'S SPOUSE READY AND WILL CONTACT DAUGHTERS AND NOTIFY NURSE WHEN READY.
[2018-08-24] MEDS ORDERED: LORazepam 2MG/ML-1ML VIAL IV PRN (10:30)
--- NOTE | 2018-08-24 10:32 | NUR ---
PAGED RESPIRATORY THERAPIST FAMILY REQUESTING TO TERMINAL WEAN PATIENT NOW. ALL FAMILY MEMBERS AT BEDSIDE. RESPIRATORY THERAPIST ROSI/BRIANNA AWARE.
[2018-08-24] MEDS: MORPHINE SULF INJ 2 MG/ML SYRINGE 1ML IV PRN ×2 (10:40→13:47)
--- NOTE | 2018-08-24 10:42 | NUR ---
Respiratory note: PT TERMINALLY EXTUBATED AND PLACED ON 2LPM NASAL CANNULA. RN AND FAMILY AT BEDSIDE.
--- NOTE | 2018-08-24 10:52 | NUR ---
CONTACT [facility] SPOKE WITH BERENICE - REQUIRED INFORMATION PROVIDED - PER BERENICE "PATIENT MAY BE A CANDIDATE FOR [employer]ATION, CALL US WHEN HE PASSES THEN WE WILL MOVE FORWARD". REFERENCE NUMBER: [id number]
--- NOTE | 2018-08-24 10:57 | NUR ---
RETURN CALL FROM P.T. WILL COME AND ASSESS PATIENT LATER THIS AFTERNOON. WILL NOTIFY MD. Addendum: 08/24/18 at 1058 by Sri Miguel RN ERROR: WRONG PATIENT ON P.T. NOTE
[2018-08-24] MEDS: NOREPINEPHRINE 8 MG/250ML KIT 250 ML IV SCH (12:20)
--- NOTE | 2018-08-24 12:37 | NUR ---
ROUNDING PATIENT VSS - LOW OXYGENATION PERFUSION. FAMILY MEMBER ASKED THIS NURSE "HOW LONG DOES IT NORMALLY TAKE FOR A PATIENT TO PASS". FAMILY MEMBER NOTIFIED THAT THERE IS NO ANSWER FOR THAT, EVERY PATIENT IS DIFFERENT. PATIENT CURRENTLY ON 2 LITERS OXGYEN VIA NASAL CANNULA AND CAN SOMETIMES PROLONG LIFE, FAMILY MEMBER REQUESTED NURSE TO TURN OFF OXYGEN DELIVERED - UPON ENTERING ROOM, PATIENT'S DAUGHTER VERBALIZED DISAGREEMENT WITH REQUEST AND ASKED THIS NURSE TO LEAVE IT ON. MULTIPLE FAMILY MEMBERS AT BEDSIDE.
--- NOTE | 2018-08-24 13:52 | NUR ---
HOSPITALIST AT BEDSIDE PATIENT PRONOUNCED. FAMILY AT BEDSIDE.
--- NOTE | 2018-08-24 14:13 | NUR ---
[facility] , DEPUTY WILL CALL BACK.
--- NOTE | 2018-08-24 14:35 | NUR ---
Respiratory note: PT TERMINALLY WEANED EARLIER IN THE DAY. PT IS NOW . MED NEB NOT INDICATED
--- NOTE | 2018-08-24 15:07 | NUR ---
[facility] RETURN CALL FROM DEPUTY ABUNDIO DOE - BODY RELEASED - SATELLITE TV TECHNICIAN INSTALLER .
--- NOTE | 2018-08-24 15:27 | NUR ---
CONTACT [facility] NOTIFIED THIS NURSE THAT THEY [facility]EN [facility]. SIMRAN, THREAD TWISTER AWARE AND NOTIFIED THAT [facility] F[facility]. SPOKE WITH MALCOM AT [facility], PROVIDED REQUIRED INFORMATION. ETA ABOUT 90 MINUTES.
--- NOTE | 2018-08-24 16:04 | NUR ---
PATIENT BODY RELEASED TO AFFORDABLE CREMATIONS ALL PERSONAL BELONGINGS TAKEN BY FAMILY. COPY OF RECORD OF AND PATIENT FACE SHEET GIVEN TO [facility].
== END 2018-08-24 16:05 | disposition expired | DRG 207 ==
LOC: ER 16:26 → TELE 22:57 → TELE-WESTW 23:20 → TELE 08-19 00:17 → ICU WEST 08-19 21:30
PROVIDERS: ADMIT Nurse Practitioner; ATTEND Internal Medicine
PROC: 5A1955Z Respiratory Ventilation, Greater than 96 Consecutive Hours (ICD-10-PCS; principal; 2018-08-19)
PROC: 0BH17EZ Insertion of Endotracheal Airway into Trachea, Via Natural or Artificial Opening (ICD-10-PCS; 2018-08-19)
PROC: 02HV33Z Insertion of Infusion Device into Superior Vena Cava, Percutaneous Approach (ICD-10-PCS; 2018-08-19)
PROC: 5A09357 Assistance with Respiratory Ventilation, Less than 24 Consecutive Hours, Continuous Positive Airway Pressure (ICD-10-PCS; 2018-08-19)
DX: J96.21 Acute and chronic respiratory failure with hypoxia (principal); J44.0 Chronic obstructive pulmonary disease with (acute) lower respiratory infection; J45.902 Unspecified asthma with status asthmaticus; J44.1 Chronic obstructive pulmonary disease with (acute) exacerbation; I46.9 Cardiac arrest, cause unspecified; J20.9 Acute bronchitis, unspecified; R91.1 Solitary pulmonary nodule; I48.2 Chronic atrial fibrillation; I10 Essential (primary) hypertension; Z79.01 Long term (current) use of anticoagulants; Z87.891 Personal history of nicotine dependence; Z82.49 Family history of ischemic heart disease and other diseases of the circulatory system; Z79.899 Other long term (current) drug therapy; Z88.0 Allergy status to penicillin
CPT/HCPCS: 36415; 36600; 71045; 80048; 80053; 81001; 82805; 83880; 84484; 85025; 85379; 85610; 85730; 87040; 87070; 87081; 87086; 87205; 87804; 93005; 94002; 94003; 94640; 94660; 96365; 96375; A6257; G0378; J0330; J1956; J2250; J2704